=== PATIENT | female | born 1980 | race Caucasian/White ===

== ENCOUNTER 2021-05-19 11:15 | Outpatient (REF) | payer OTHER, SELFPAY ==
[2021-05-19 13:49] LABS: Hemoglobin 13.1 g/dl (12.0-16.0); Mean Corpuscular HGB Conc 32.8 g/dl (31.0-35.0); Mean Corpuscular Hemoglobin 30.5 pg (27.0-33.0); Mean Corpuscular Volume 93.2 fL (80-98); Mean Platelet Volume 9.8 fL (9.4-12.3); Platelet Count 358 X10*3/uL (160-400); Red Blood Count 4.29 X10*6/uL (4.20-5.50); Red Cell Distribution Width 12.9 % (11.0-16.0)
[2021-05-19 14:16] LABS: Alanine Aminotransferase 21 U/L (0-31); Albumin Level 4.4 g/dL (3.5-5.0); Alkaline Phosphatase 61 U/L (39-117); Anion Gap 14 (12-20); Aspartate Amino Transferase 24 U/L (5-31); Bilirubin Total 0.2 mg/dL (0.0-1.0); Blood Urea Nitrogen 11 mg/dL (9-16); Calcium 9.5 mg/dL (8.4-10.2); Carbon Dioxide 27 mmol/L (22-29); Chloride 102 mmol/L (96-108); Cholesterol 151 mg/dL; Estimated Glomerular Filt Rate > 60; Glucose Fasting 97 mg/dL (60-99); HDL Cholesterol 65 mg/dL; LDL Cholesterol Calculated 74 mg/dl; Potassium 4.6 mmol/L (3.3-5.1); Sodium 138 mmol/L (135-145); Total Protein 7.5 g/dL (6.5-8.0); Triglycerides 60 mg/dL
[2021-05-19 14:40] LABS: TSH reflex Free T4 1.34 uIU/mL (0.32-4.0)
== END 2021-05-19 11:16 | disposition home or self-care (01) ==
LOC: HO.HMGCLDS 11:15
PROVIDERS: PCP Internal Medicine; Visit Provider Internal Medicine
DX: Z00.00 Encounter for general adult medical examination without abnormal findings (principal)
CPT/HCPCS: 36415; 80053; 80061; 84443; 85027

== ENCOUNTER 2021-06-21 15:08 | Outpatient (REF) | payer OTHER, SELFPAY ==
[2021-06-26 17:16] LABS: HPV mRNA E6/E7 Not Detected (Not Detected)
== END 2021-06-21 15:09 | disposition home or self-care (01) ==
LOC: HO.LAB 15:08
PROVIDERS: Visit Provider Internal Medicine
DX: Z12.4 Encounter for screening for malignant neoplasm of cervix (principal); Z11.51 Encounter for screening for human papillomavirus (HPV)
CPT/HCPCS: 87624; 88142

== ENCOUNTER 2021-07-06 12:45 | Outpatient (REF) | payer OTHER, SELFPAY ==
--- NOTE | ~2021-07-06 | MM_ITS ---
EXAMINATION: MM DIAGNOSTIC DIGITAL BREAST TOMOSYNTHESIS, BILATERAL US DIAGNOSTIC ULTRASOUND BREAST, RIGHT CLINICAL INFORMATION: Palpable area 1 cm behind right nipple on clinical exam. The lifetime risk of breast cancer based on the Tyrer-Cuzick Model is 13%. COMPARISON: Ultrasound right breast 12/25/2018 ([facility]). TECHNIQUE: Digital breast tomosynthesis is performed in both the craniocaudal and mediolateral oblique views along with computer-aided detection (CAD). Synthesized 2D images are generated from the tomosynthesis. Ultrasound right breast is targeted to the retroareolar position and 6:00 through 12:00 position. Grayscale imaging and color Doppler are performed without and with harmonics. FINDINGS: The breasts are heterogeneously dense, which may obscure small masses (ACR BI-RADS breast composition Category c). There are scattered minor asymmetries. No architectural abnormality or significant mass. There are scattered benign calcifications. Biopsy clip marker is present anterior lower inner left breast. The axilla and skin contours are unremarkable. There is no skin thickening or coarsening of the Josue's ligaments. Ultrasound demonstrates simple cyst 9:00 position 4 cm from nipple measuring 1.5 x 1.1 cm. Adjacent to this is a acorn cyst 1.2 cm in diameter with geographic peripheral or internal echogenicity likely apocrine metaplasia. There is no peripheral or internal color flow. There is increased through-transmission of sound. There is no solid mass or architectural abnormality or focal duct ectasia. The outside ultrasound demonstrates a larger simple cyst 9:00 position measuring 3.1 x 1.1 cm. The acorn cyst is not demonstrated on outside exam. Results are discussed with the patient at time of visit. MM/MM tomosynthesis diagnostic BI IMPRESSION: 1. No mammographic evidence of malignancy. Radiology department will attempt to retrieve prior outside mammography to allow for comparison in an addendum report. 2. Ultrasound right breast demonstrates simple cyst 9:00 position and a probable benign acorn cyst, both under 2 cm. ASSESSMENT: BI-RADS 3: Probably Benign RECOMMENDATION: 1. Targeted ultrasound right breast in 6 months. 2. Radiology department staff will attempt to retrieve prior outside mammography to allow for comparison in an addendum report. This patient's information was entered into a reminder system with a target due date for their next mammogram.
== END 2021-07-06 12:46 | disposition home or self-care (01) ==
LOC: HO.MAMMO 12:45
PROVIDERS: Visit Provider Internal Medicine
DX: N63.10 Unspecified lump in the right breast, unspecified quadrant (principal)
CPT/HCPCS: 76642; 77062; 77066